=== PATIENT | male | born 1970 | race African-American/Black ===

== ENCOUNTER 2019-01-10 14:05 | Emergency (ER) | payer SELFPAY ==
[~2019-01-10] VITALS: Ht 177.8 cm; Wt 86.0 kg
[2019-01-10] MEDS ORDERED: FLUORESCEIN SODIUM 1MG/STRIP RIGHTEYE ONE (14:45)
[2019-01-10] MEDS ORDERED: TETRACAINE 0.5% OPHTH DROPS 4ML RIGHTEYE ONE (14:45)
[2019-01-10 16:45] VITALS: BP 121/62
== END 2019-01-10 16:48 | disposition home or self-care (01) ==
LOC: ER 14:05
DX: S05.01XA Injury of conjunctiva and corneal abrasion without foreign body, right eye, initial encounter (principal); X58.XXXA Exposure to other specified factors, initial encounter; Y93.89 Activity, other specified; Y92.410 Unspecified street and highway as the place of occurrence of the external cause
CPT/HCPCS: 99283

== ENCOUNTER 2019-04-04 20:29 | Emergency (ER) | payer SELFPAY ==
[~2019-04-04] VITALS: Ht 177.8 cm; Wt 91.0 kg
[2019-04-04] MEDS ORDERED: IBUPROFEN 600MG TABLET PO ONE (21:00)
[2019-04-04 22:01] VITALS: BP 157/79
== END 2019-04-04 21:56 | disposition home or self-care (01) ==
LOC: ER 20:29
DX: S13.4XXA Sprain of ligaments of cervical spine, initial encounter (principal); M54.9 Dorsalgia, unspecified; R51 Headache; M25.512 Pain in left shoulder; V49.40XA Driver injured in collision with unspecified motor vehicles in traffic accident, initial encounter; Y93.89 Activity, other specified; Y92.410 Unspecified street and highway as the place of occurrence of the external cause; F17.210 Nicotine dependence, cigarettes, uncomplicated
CPT/HCPCS: 72040; 99283

== ENCOUNTER 2019-06-16 09:57 | Emergency (ER) | payer SELFPAY ==
[~2019-06-16] VITALS: Ht 177.8 cm; Wt 91.0 kg
[2019-06-16] MEDS ORDERED: KETOROLAC 30MG/ML VIAL IM ONE (11:30)
[2019-06-16 12:46] VITALS: BP 125/88
[2019-06-16] MEDS ORDERED: METHOCARBAMOL 750MG TABLET PO SCH (14:00)
== END 2019-06-16 12:49 | disposition home or self-care (01) ==
LOC: ER 09:57
DX: S30.0XXA Contusion of lower back and pelvis, initial encounter (principal); W20.8XXA Other cause of strike by thrown, projected or falling object, initial encounter; Y93.89 Activity, other specified; Y92.89 Other specified places as the place of occurrence of the external cause; Y99.8 Other external cause status
CPT/HCPCS: 96372; 99283; J1885

== ENCOUNTER 2020-03-13 13:28 | Emergency (ER) | payer SELFPAY ==
[~2020-03-13] VITALS: Ht 172.7 cm; Wt 85.0 kg
[2020-03-13] MEDS ORDERED: ACETAMINOPHEN 325MG TABLET PO ONE (15:15)
[2020-03-13] MEDS ORDERED: KETOROLAC 30MG/ML VIAL IM ONE (16:15)
[2020-03-13 16:20] VITALS: BP 134/96
== END 2020-03-13 16:27 | disposition home or self-care (01) ==
LOC: ER 13:28
DX: R51 Headache (principal)
CPT/HCPCS: 70450; 96372; 99284; J1885

== ENCOUNTER 2023-03-20 09:41 | Emergency (ER) | payer BC, OTHER ==
[~2023-03-20] VITALS: Ht 177.8 cm; Wt 86.0 kg
[2023-03-20] MEDS ORDERED: B50 MT (10:15)
[2023-03-20] MEDS ORDERED: DIPHENHYDRAMINE 50MG/ML VIAL IM ONE (10:15)
[2023-03-20 11:28] VITALS: BP 148/101
== END 2023-03-20 11:31 | disposition home or self-care (01) ==
LOC: ER 09:41
DX: T78.40XA Allergy, unspecified, initial encounter (principal); X58.XXXA Exposure to other specified factors, initial encounter; F12.10 Cannabis abuse, uncomplicated
CPT/HCPCS: 96372; 99283; J1200

== ENCOUNTER 2023-10-07 05:16 | Emergency (ER) | payer MEDICAID, OTHER ==
[~2023-10-07] VITALS: Ht 177.8 cm; Wt 86.1 kg
[~2023-10-07 05:16] MED LIST: B50 MT
[2023-10-07 05:52] VITALS: O2SAT 100
[2023-10-07 06:32] VITALS: BP 157/111; PULSE 89; RESP 16; TEMP 98.2
[2023-10-07] MEDS ORDERED: IBUP-2029 MT (06:40)
[2023-10-07] MEDS ORDERED: AMLO5TAB88 MT (06:40)
[2023-10-07] MEDS ORDERED: METH-653 MT (06:40)
== END 2023-10-07 07:03 | disposition home or self-care (01) ==
LOC: ER 05:16
DX: M25.512 Pain in left shoulder (principal); M54.2 Cervicalgia; F12.10 Cannabis abuse, uncomplicated; W18.30XA Fall on same level, unspecified, initial encounter; Y93.89 Activity, other specified; Y92.89 Other specified places as the place of occurrence of the external cause; Y99.8 Other external cause status
CPT/HCPCS: 73030; 99283